=== PATIENT | male | born 1970 | race Caucasian/White ===

== ENCOUNTER 2023-11-05 06:26 | Inpatient (IN) | payer BC ==
[2023-11-04 11:58] LABS: Anion Gap 9.4 mEq/L (5.0-15.0); Potassium 4.4 mEq/L (3.5-5.1)
--- NOTE | 2023-11-04 12:02 | RAD REPORT ---
EXAM DESCRIPTION: RAD - Chest Pa And Lat (2 Views) - 11/04/2023 11:50 am CLINICAL HISTORY: PREOP, hypertension, history of smoking COMPARISON: No comparisons FINDINGS: Lines: None. Lungs: Ill-defined linear opacities at the left lung base. Pleural: No significant pleural effusions or pneumothorax. Cardiac: The heart size is within normal limits. Mediastinum: Within normal limits. Bones: No acute fractures. Other: None IMPRESSION: Ill-defined linear opacities at the left lung base probably secondary to chronic scarrin g but no priors available for comparison. No definite acute process.
[2023-11-05] MEDS: Ringers Lactate 1,000 ML IV ONE ×2 (06:30→09:21)
[2023-11-05] MEDS ORDERED: LIDOCAINE 2% MPF 5 ML VIAL ONE (06:50)
[2023-11-05] MEDS ORDERED: propofoL 200 MG/20 ML VIAL IV ONE (06:50)
[2023-11-05] MEDS ORDERED: MIDAZOLAM HCL 2 MG/2 ML INJ ONE (06:53)
[2023-11-05] MEDS ORDERED: ROCURONIUM 50 MG/5 ML VIAL IV ONE (06:53)
[2023-11-05] MEDS ORDERED: FENTANYL CITR 100 MCG/2 ML ONE (06:53)
[2023-11-05] MEDS ORDERED: ONDANSETRON 4 MG/2 ML VIAL ONE (06:57)
[2023-11-05] MEDS: CIPROFLOXACIN 400mg IV 400 MG/200 ML BAG IV ONE (08:00)
[2023-11-05] MEDS ORDERED: GLYCOPYRROLATE 0.2 MG/ML SYR ONE ×2 (08:12)
[2023-11-05] MEDS ORDERED: KETOROLAC 30 MG/ML INJ ONE (08:32)
[2023-11-05] MEDS: dexAMETHasone 4 MG/ML VIAL ONE (09:10)
[2023-11-05] MEDS: BUPIVACAINE 0.25% PF 30 ML VIAL ONE (09:10)
--- OUTSIDE RECORDS SUMMARY | 2023-11-05 11:02 | XMS REPORT | Continuity of Care Document ---
Author Name Unknown Address [address] [place] [address] [facility] thconnect Address 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 Name Role Phone ALY MOY Primary Care Physician DOLORES Quijano Attending Clinician Unava ilable RADIOLOGY Attending Clinician Unavailable Radiology Attending Clinician Unavailable Pob, Adc Lab Main Attending Clinician Thor Juares MD Attending Clinician [phone] THOR ALEGRE Attending Clinician CRISTINA Ferguson Admitting Clinician Unavailable Payers Payer Name Policy Type Policy Number Effective Date Expirati on Date Source [facility] [id number] 2020 00:00:00 Allergies, Adverse Reactions, Alerts Allergy Name Allergy Type Status Severity Reaction(s) Onset Date Inactive Date Treating Clinician Comments Source NO KNOWN ALLERGIE S Drug Class Active [facility] Social History Social Habit Start Date Stop Date Quantity Comments Source Sex Assigned At 1970 00:00:00 1970 00:00:[address] [facility] Smoking Status Start Date Stop Date Source Tobacco smoking consumption unknown [facility] Encounters Start Date/Time End Date/Time Encounter Type Admission Type Attending Clinicians Care Facility Care Department Encounter ID Source 2023-10-14 05:08:00 2023-10-14 08:46:00 Emergency E DOLORES KEYES [facility] [id number] [facility] 2021-12-24 10:52:34 2021-12-24 23:59:00 Outpatient R RADIOLOGY [facility] [id number] [facility] 2021-12-24 10:52:34 2021-12-24 23:59:00 Hospital Encounter Radiology [facility] [id number] [facility] 2020-05-25 10:31:06 2020-05-25 10:46:06 Building Attendant Visit Pob, Adc Lab Main Thor Alegre [facility] Profess[facility] On license of [facility] [id number] [facility] 2020-05-25 10:30:00 2020-05-25 10:30:00 Outpatient R THOR ALEGRE [facility] [id number] [facility]
[2023-11-05] MEDS: HYDROMORPHONE HCL 1 MG/ML INJ ONE (11:27)
[2023-11-05] MEDS: MEPERIDINE HCL 25 MG/ML SYR ONE (12:01)
[2023-11-05 12:40] VITALS: BMI 25.7
--- NOTE | 2023-11-05 12:50 | RAD REPORT ---
EXAM DESCRIPTION: RAD - Abdomen 1 View (KUB) - 11/05/2023 12:06 pm CLINICAL HISTORY: Placement of NGT/OGT. Post Insertion. COMPARISON: No comparisons TECHNIQUE: Single AP view of the abdomen. FINDINGS: Enteric tube are in satisfactory position with tip along the distal stomach. Nonobstructive bowel gas pattern. No air-fluid levels, free air, or pneumatosis. No suspicious calcif ications. No significant bony abnormality. IMPRESSION: Satisfactory positioning of the enteric tube.
[2023-11-05] MEDS: NA CHLORIDE 0.9% 1,000 ML IV SCH (12:51)
[2023-11-05] MEDS: MORPHINE 4 MG/ML SYR IV PRN (15:15)
[2023-11-05] MEDS: METRONIDAZOLE 500mg IVPB 500 MG/100 ML BAG IV SCH (17:01)
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
[2023-11-05] MEDS: HYDROMORPHONE HCL 0.5 MG/0.5 ML INJ IV PRN (19:52)
[2023-11-05] MEDS: CIPROFLOXACIN 400mg IV 400 MG/200 ML BAG IV SCH (19:53)
--- NOTE | 2023-11-06 07:16 | P.PN ---
Date of Service: 11/06/23 Subjective: abdonmial pain tolerable with medication. thinks the morphine is helping more than the dilaudid no BM or flatus yet BP low-normal NGT uncomfortable. with sore throat otherwise doing okay urinating without issues ROS: 10 point ROS as noted above, otherwise negative Physical Exam: GEN: Alert, oriented, appears uncomfortable HEENT: Normal conjunctiva, sclera anicteric; NGT to LIWS CV: Regular rate and rhythm, no edema Pulm: Nonlabored respirations on room air, clear bilaterally ABD: Soft, nontender, abdominal binder in place, Neuro: Normal speech, normal affect vitals reviewed Problem List: Acute on chronic abdominal pain secondary to incarcerated umbilical hernia s/p ex lap, small bowel resection with anastomosis, lysis of adhesions (11/04) Hypertension Acute on chronic abdominal pain secondary to incarcerated umbilical hernia s/p ex lap, small bowel resection with anastomosis, lysis of adhesions (11/04) doing well post-operatively underwent umbilical hernia repair, ex lap, small bowel resection with anastomosis, lysis of adhesions on 11/04 continue empiric cipro / flagyl (11/04-) NGT to LIWS in place Dr. Roche is following diet per surgery; likely advance diet to liquids tomorrow continue IVF while NPO encourage incentive spirometry pain control check CBC Hypertension takes metoprolol at home hold for now given low-normal BP VTE: ambulatory Code: Full Dispo: per surgery Time Spent Managing Pts Care (In Minutes): 39
[2023-11-06 07:46] LABS: Anion Gap 10.1 mEq/L (5.0-15.0); Potassium 4.1 mEq/L (3.5-5.1)
[2023-11-06 09:38] LABS: Absolute Lymphocytes (CBC) 1.3 K/uL (0.7-4.9); Absolute Monocytes 0.9 K/uL (0.1-1.3); Absolute Neutrophil 11.1 K/uL (1.8-8.0); Basophils % 0.2 % (0-1.3); Hematocrit 36.9 % (39.6-49.0); Hemoglobin 12.2 g/dL (13.6-17.9); Lymphocytes % 9.9 % (15.3-44.8); MCH 30.1 pg (27.0-35.0); MCHC 32.9 g/dL (32.0-36.0); MCV 91.3 fL (80-100); MPV 8.5 fL (7.6-11.3); Monocytes % 6.6 % (3.3-12.3); Neutrophils % 83.3 % (41.7-73.7); Platelets 203 thou/uL (152-406); RBC Red Blood Cell Count 4.05 M/uL (4.33-5.43)
[2023-11-07 06:19] LABS: Absolute Lymphocytes (CBC) 2.6 K/uL (0.7-4.9); Absolute Monocytes 0.7 K/uL (0.1-1.3); Absolute Neutrophil 7.1 K/uL (1.8-8.0); Basophils % 0.4 % (0-1.3); Eosinophils % 0.3 % (0-4.4); Hematocrit 36.7 % (39.6-49.0); Lymphocytes % 25.1 % (15.3-44.8); MCHC 32.7 g/dL (32.0-36.0); MCV 91.5 fL (80-100); MPV 8.3 fL (7.6-11.3); Monocytes % 6.3 % (3.3-12.3); Neutrophils % 67.9 % (41.7-73.7); Platelets 194 thou/uL (152-406); Red Cell Distribution Width 13.9 % (12.1-15.2)
[2023-11-07 06:26] LABS: Magnesium 1.9 mg/dL (1.6-2.4)
[2023-11-07] MEDS: ONDANSETRON 4 MG/2 ML VIAL IV PRN (09:25)
--- NOTE | 2023-11-07 10:06 | P.PN ---
Date of Service: 11/07/23 Subjective: feeling better today NGT removed yesterday ambulated around the floor earlier today no BM or flatus yet. Denies n/v abdominal pain improving. +burping ROS: 10 point ROS as noted above, otherwise negative Physical Exam: GEN: Alert, oriented, NAD HEENT: Normal conjunctiva, sclera anicteric CV: Regular rate and rhythm, no edema Pulm: Nonlabored respirations on room air ABD: Soft, mild tendernesss, abdominal binder in place vitals reviewed Problem List: Acute on chronic abdominal pain secondary to incarcerated umbilical hernia s/p repair (11/04) s/p ex lap, small bowel resection with anastomosis, lysis of adhesions (11/04) Hypertension Acute on chronic abdominal pain secondary to incarcerated umbilical hernia s/p repair (11/04) s/p ex lap, small bowel resection with anastomosis, lysis of adhesions (11/04) doing well post-operatively underwent umbilical hernia repair, ex lap, small bowel resection with anastomosis, lysis of adhesions on 11/04 continue empiric cipro / flagyl (11/04-) NGT dc'd 11/05 diet per surgery continue IVF while NPO encourage incentive spirometry pain control Hypertension takes metoprolol at home hold for now given low-normal BP VTE: ambulatory Code: Full Dispo: per surgery; anticipate home in ~2 days Time Spent Managing Pts Care (In Minutes): 39
--- NOTE | 2023-11-07 16:00 | P.PN ---
Subjective Date of Service: 11/06/23 Chief Complaint: Exp laparotomy, small bowel resection with anastomosis. MAJO Subjective: Ambulating, Improving Review of Systems General: Unremarkable Eyes: Unremarkable Respiratory: Unremarkable Cardiovascular: Unremarkable Gastrointestinal: Abdominal Pain, Distention, As per HPI Genitourinary: Unremarkable Physical Examination - Vital Signs Temperature: 97.7 F Blood Pressure: 105/70 Pulse: 67 Respirations: 18 Pulse Ox (%): 98 - Physical Exam General: Alert, In no apparent distress, Cooperative HEENT: Normocephalic, PERRLA Neck: Supple Respiratory: Clear to auscultation bilaterally Cardiovascular: No edema Gastrointestinal: Hypoactive, Tenderness Musculoskeletal: No erythema, No tenderness, No warmth Integumentary: No rashes, No breakdown, No erythema, No warmth, No cyanosis Neurological: Normal speech - Studies Laboratory Data (last 24 hrs) Assessment And Plan - Plan bowel rest hospitalist to help with BP meds IS SCD ambulate
--- NOTE | 2023-11-07 16:02 | P.PN ---
Subjective Date of Service: 11/07/23 Chief Complaint: Exp laparotomy, small bowel resection with anastomosis. MAJO Subjective: Ambulating, Improving Review of Systems General: Unremarkable Eyes: Unremarkable ENT: Unremarkable Respiratory: Unremarkable Cardiovascular: Unremarkable Gastrointestinal: Nausea (no), Vomiting (no), No Distention Genitourinary: Unremarkable Physical Examination - Vital Signs Temperature: 97.7 F Blood Pressure: 105/70 Pulse: 67 Respirations: 18 Pulse Ox (%): 98 - Physical Exam General: Alert, In no apparent distress, Oriented x3, Cooperative HEENT: Normocephalic, PERRLA, EOMI Neck: Supple Respiratory: Normal air movement Cardiovascular: No edema, Normal pulses Gastrointestinal: Normal bowel sounds, Soft and benign Musculoskeletal: No erythema, No tenderness, No warmth Integumentary: No rashes, No breakdown, No erythema, No warmth, No cyanosis Neurological: Normal speech, Normal tone - Studies Laboratory Data (last 24 hrs) 11/07/23 11/07/23 05:16 05:16 WBC 10.40 Hgb 12.0 L Hct 36.7 L Plt Count 194 Sodium 138 Potassium 4.0 BUN 18 Creatinine 0.90 Glucose 108 H Magnesium 1.9 Assessment And Plan - Plan clear liquid hospitalist to help with BP meds IS SCD ambulate
[2023-11-08] MEDS: MAGNES/ALUMIN/SIMET 30ML UCUP PO PRN (03:30)
--- NOTE | 2023-11-08 07:31 | P.PN ---
Date of Service: 11/08/23 Subjective: improving daily No BM yet, +flatus less belching had some cramping pain prior to flatus last night tolerating some clear liquids without issues. ambulating around the floor ROS: 10 point ROS as noted above, otherwise negative Physical Exam: GEN: Alert, oriented, NAD HEENT: Normal conjunctiva, sclera anicteric CV: Regular rate and rhythm, no edema Pulm: Nonlabored respirations on room air ABD: Soft, mild tendernesss, dressing c/d/i vitals reviewed Problem List: Acute on chronic abdominal pain secondary to incarcerated umbilical hernia s/p repair (11/04) s/p ex lap, small bowel resection with anastomosis, lysis of adhesions (11/04) Hypertension Acute on chronic abdominal pain secondary to incarcerated umbilical hernia s/p repair (11/04) s/p ex lap, small bowel resection with anastomosis, lysis of adhesions (11/04) doing well post-operatively underwent umbilical hernia repair, ex lap, small bowel resection with anastomosis, lysis of adhesions on 11/04 continue empiric cipro / flagyl (11/04-) NGT dc'd 11/05 Dr. Roche is following advanced to clear liquids 11/06 pm; advance as tolerated dc IVF 11/07 encourage incentive spirometry pain control Hypertension takes metoprolol at home hold for now given low-normal BP VTE: SCD Code: Full Dispo: per surgery; anticipate home in ~2 days Time Spent Managing Pts Care (In Minutes): 37
[2023-11-08 08:23] LABS: Absolute Eosinophils 0.2 K/uL (0-0.5); Absolute Lymphocytes (CBC) 1.8 K/uL (0.7-4.9); Absolute Monocytes 0.6 K/uL (0.1-1.3); Absolute Neutrophil 6.4 K/uL (1.8-8.0); Basophils % 0.5 % (0-1.3); Eosinophils % 1.8 % (0-4.4); MCH 30.8 pg (27.0-35.0); MCHC 34.4 g/dL (32.0-36.0); MCV 89.4 fL (80-100); MPV 7.6 fL (7.6-11.3); Monocytes % 6.5 % (3.3-12.3); Neutrophils % 71.2 % (41.7-73.7); Platelets 210 thou/uL (152-406); RBC Red Blood Cell Count 3.92 M/uL (4.33-5.43); Red Cell Distribution Width 13.6 % (12.1-15.2)
[2023-11-08 08:38] LABS: Anion Gap 5.8 mEq/L (5.0-15.0); Magnesium 1.9 mg/dL (1.6-2.4); Potassium 3.8 mEq/L (3.5-5.1)
[2023-11-08] MEDS: FAMOTIDINE 20 MG TAB PO SCH (09:41)
[2023-11-08] MEDS: HYDROCODONE/APAP 5/325 MG TAB PO PRN (21:56)
[2023-11-08 23:15] VITALS: O2SAT 98
--- NOTE | 2023-11-09 09:37 | P.PN ---
Date of Service: 11/09/23 Subjective: feeling better today no BM yet, increased flatus today tolerated some bites of soft diet this morning without issues ambulating afebrile ROS: 10 point ROS as noted above, otherwise negative Physical Exam: GEN: Alert, oriented, NAD HEENT: Normal conjunctiva, sclera anicteric CV: Regular rate and rhythm, no edema Pulm: Nonlabored respirations on room air ABD: Soft, mild tendernesss, dressing c/d/i vitals reviewed Problem List: Acute on chronic abdominal pain secondary to incarcerated umbilical hernia s/p repair (11/04) s/p ex lap, small bowel resection with anastomosis, lysis of adhesions (11/04) Hypertension Acute on chronic abdominal pain secondary to incarcerated umbilical hernia s/p repair (11/04) s/p ex lap, small bowel resection with anastomosis, lysis of adhesions (11/04) doing well post-operatively underwent umbilical hernia repair, ex lap, small bowel resection with anastomosis, lysis of adhesions on 11/04 continue empiric cipro / flagyl (11/04-) NGT dc'd 11/05 Dr. Roche is following advanced to low salt regular diet 11/08; tolerated this morning without issues encourage incentive spirometry pain control Hypertension takes metoprolol at home hold for now given low-normal BP can restart on dc VTE: SCD Code: Full Dispo: per surgery; anticipate home in ~1 day Time Spent Managing Pts Care (In Minutes): 37
[2023-11-10 09:48] VITALS: BP 122/78; TEMP 96.9
--- NOTE | 2023-11-10 10:30 | P.PN ---
Date of Service: 11/10/23 Subjective: feeling better today no issues overnight afebrile ROS: 10 point ROS as noted above, otherwise negative Physical Exam: GEN: Alert, oriented, NAD HEENT: Normal conjunctiva, sclera anicteric CV: Regular rate and rhythm, no edema Pulm: Nonlabored respirations on room air ABD: Soft, mild tendernesss, dressing c/d/i vitals reviewed Problem List: Acute on chronic abdominal pain secondary to incarcerated umbilical hernia s/p repair (11/04) s/p ex lap, small bowel resection with anastomosis, lysis of adhesions (11/04) Hypertension Acute on chronic abdominal pain secondary to incarcerated umbilical hernia s/p repair (11/04) s/p ex lap, small bowel resection with anastomosis, lysis of adhesions (11/04) doing well post-operatively underwent umbilical hernia repair, ex lap, small bowel resection with anastomosis, lysis of adhesions on 11/04 continue empiric cipro / flagyl (11/04-) NGT dc'd 11/05 Dr. Roche is following tolerating diet without issues encourage incentive spirometry pain control Hypertension takes metoprolol at home can restart on dc VTE: SCD Code: Full Dispo: per surgery; anticipate discharge today Clincally improved. Medically cleared for discharge. Time Spent Managing Pts Care (In Minutes): 37
--- NOTE | 2023-11-10 11:29 | P.PN ---
Subjective Date of Service: 11/08/23 Chief Complaint: Exp laparotomy, small bowel resection with anastomosis. MAJO Subjective: Ambulating, Improving Review of Systems Respiratory: Unremarkable Cardiovascular: Unremarkable Gastrointestinal: Nausea, Abdominal Pain, Distention Integumentary: Unremarkable Physical Examination - Vital Signs Temperature: 96.9 F Blood Pressure: 122/78 Pulse: 59 Respirations: 18 Pulse Ox (%): 98 - Physical Exam General: Alert, In no apparent distress, Oriented x3 HEENT: Normocephalic, PERRLA Neck: Supple Respiratory: Normal air movement Cardiovascular: No edema, Normal pulses Gastrointestinal: Soft and benign, Distended Musculoskeletal: No erythema, No tenderness, No warmth Integumentary: No rashes, No breakdown, No erythema, No warmth, No cyanosis Neurological: Normal speech Assessment And Plan - Plan advance diet IS SCD ambulate
--- NOTE | 2023-11-10 11:32 | P.PN ---
Subjective Date of Service: 11/10/23 Chief Complaint: Exp laparotomy, small bowel resection with anastomosis. MAJO Subjective: Improving Review of Systems Gastrointestinal: Abdominal Pain (better), As per HPI Genitourinary: Unremarkable Physical Examination - Vital Signs Temperature: 96.9 F Blood Pressure: 122/78 Pulse: 59 Respirations: 18 Pulse Ox (%): 98 - Physical Exam General: Alert, In no apparent distress, Oriented x3, Cooperative HEENT: Normocephalic, PERRLA, EOMI Neck: Supple Respiratory: Clear to auscultation bilaterally Cardiovascular: Normal pulses Gastrointestinal: No masses, No rebound, No guarding Musculoskeletal: No erythema, No tenderness, No warmth Integumentary: No erythema, No warmth, No cyanosis Neurological: Normal speech Assessment And Plan - Plan finally passing gas advance diet Try po pain meds d/h in am IS SCD ambulate
--- NOTE | 2023-11-11 18:09 | EKG ---
Test Date: 2023-11-04 Test Time: 11:21:38 Rough Rice Tender: DAVIS MEASUREMENT RESULTS: Intervals: Rate: 56 MA: 166 QRSD: 84 QT: 418 QTc: 403 [place]: P: 59 MA: 166 QRS: 64 T: 41 INTERPRETIVE STATEMENTS: Sinus bradycardia Otherwise normal ECG No previous ECG available for comparison Electronically Signed On 11-11-23 17:54:51 CDT by Reinier Bowman
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
== END 2023-11-10 12:00 | disposition home or self-care (01) | DRG 330 ==
LOC: OR 06:26 → 4TH 10:58
PROVIDERS: ADMIT Surgery; ATTEND Surgery
PROC: 0DT80ZZ Resection of Small Intestine, Open Approach (ICD-10-PCS; 2023-11-05)
PROC: 0DNW4ZZ Release Peritoneum, Percutaneous Endoscopic Approach (ICD-10-PCS; 2023-11-05)
PROC: 0DH67UZ Insertion of Feeding Device into Stomach, Via Natural or Artificial Opening (ICD-10-PCS; 2023-11-05)
PROC: 0DH67UZ Insertion of Feeding Device into Stomach, Via Natural or Artificial Opening (ICD-10-PCS; principal; 2023-11-05 07:30)
DX: K42.0 Umbilical hernia with obstruction, without gangrene (principal); K56.51 Intestinal adhesions [bands], with partial obstruction; I10 Essential (primary) hypertension; Z88.0 Allergy status to penicillin; Z91.013 Allergy to seafood; Z91.048 Other nonmedicinal substance allergy status; Z79.899 Other long term (current) drug therapy
CPT/HCPCS: 36415; 71046; 74018; 80048; 83735; 85025; 88305; 88307; 93005; 94010; J0744; J1100; J1170; J2001; J2175; J2250; J2405; J2704; J3010; J7030; J7120